=== PATIENT | male | born 1990 | race Two or more races ===

== ENCOUNTER 2016-12-30 20:24 | Emergency (ER) | payer OTHER ==
[2016-12-31] MEDS ORDERED: CEPHALEXIN 500 MG CAPSULE PO ONE (01:06)
[2016-12-31] MEDS ORDERED: ACETAMINOPHEN 325 MG TABLET PO ONE (01:06)
[2016-12-31] MEDS ORDERED: DIPH/PERTUSS(ACELL)/TETANUS VAC/PF 0.5 ML SYR (>=10YO) IM ONE (01:06)
--- NOTE | 2016-12-31 01:12 | ER Document Report ---
ED Wound - General Chief Complaint: Laceration Stated Complaint: WC/FALL,RIGHT ARM LACERATION Notes: Patient is a 26-year-old male who works at [employer]. Patient states he tripped and fell on his right elbow and scratched his elbow to be nails at about 8 PM this evening. Patient admits to full range of motion of the right upper extremity without any tenderness to palpation of the bones but has pain at the site. Was bleeding at work but since has stopped. Tetanus is not up-to-date No known drug allergies PMH: denies PSH: denies SH: denies tobacco, etoh and drug use Does not have a primary care provider TRAVEL OUTSIDE OF THE [place] IN LAST 30 DAYS: No - Related Data Allergies/Adverse Reactions: No Known Allergies Allergy (Unverified 12/30/16 20:44) Past Medical History - Social History Smoking Status: Never Smoker Family History: Reviewed & Not Pertinent Patient has suicidal ideation: No Patient has homicidal ideation: No Renal/ Medical History: Denies: Hx Peritoneal Dialysis Review of Systems - Review of Systems Constitutional: No symptoms reported Skin: See HPI -: Yes All other systems reviewed and negative Physical Exam - Vital signs Vitals: Temp Pulse Resp BP Pulse Ox 98.9 F 95 20 159/93 H 98 12/30/16 20:40 12/30/16 20:40 12/30/16 20:40 12/30/16 20:40 12/30/16 20:40 - Notes Notes: PHYSICAL EXAM GENERAL: Alert, interacts well. HEAD: Normocephalic, atraumatic. EYES: Pupils equal, round, and reactive to light. Extraocular movements intact. NECK: Full range of motion. Supple. Trachea midline. LUNGS: Clear to auscultation bilaterally, no wheezes, rales, or rhonchi. No respiratory distress. HEART: Regular rate and rhythm. No murmurs, gallops, or rubs. EXTREMITIES: Moves all 4 extremities spontaneously. No edema, radial and dorsalis pedis pulses 2/4 bilaterally. No cyanosis. NEUROLOGICAL: Alert and oriented x4. Normal speech. PSYCH: Normal affect, normal mood. - Skin Skin Temperature: Warm Skin Moisture: Dry Skin Color: Normal Skin Turgor: Elastic Skin irregularity: Laceration - 3cm into dermis but completely through, laceration without linear edges and surrounded skin tears, other - no bleeding, clot in place Location of irregularity: Extremities - right elbow Course - Re-evaluation Re-evalutation: 12/31/16 01:10 Patient is a 26-year-old male who is hemodynamically stable, no acute distress afebrile. laceration does not qualify for primary closure do to surrounging skin tears and not completely breaching cuong dermis. Discussed wound care with patient and father who is also present. Will discharge patient home after updating tetanus status current. Antibiotic and can follow-up with primary care as needed. - Vital Signs Vital signs: Temp Pulse Resp BP Pulse Ox 98.6 F 87 16 164/87 H 96 12/31/16 01:26 12/31/16 01:26 12/31/16 01:26 12/31/16 01:26 12/31/16 01:26 Discharge - Discharge Clinical Impression: Laceration Disposition: HOME, SELF-CARE Instructions: Antibiotic Ointment Protection ([facility]), Tetanus Immunization Given ([facility]), Prophylactic Antibiotic ([facility]), Soap Cleansing ([facility]), Non-Sutured Laceration ([facility]) Prescriptions: Cephalexin Monohydrate [Keflex 500 mg Capsule] 500 mg PO BID 5 Days Forms: Elevated Blood Pressure, Return to Work Referrals: DEEPAK LYNN MD [ACTIVE STAFF] - Follow up as needed
[2016-12-31 01:31] VITALS: BP 164/87
== END 2016-12-31 01:32 | disposition home or self-care (01) ==
LOC: ER 20:24
DX: S51.011A Laceration without foreign body of right elbow, initial encounter (principal); W19.XXXA Unspecified fall, initial encounter; Y99.0 Civilian activity done for income or pay; Z23 Encounter for immunization
CPT/HCPCS: 90471; 90715; 99282